=== PATIENT | male | born 1995 | race Hispanic/Latino ===

== ENCOUNTER 2017-10-11 19:16 | Emergency (ER) | payer OTHER, SELFPAY ==
[2017-10-11] MEDS ORDERED: Bacitracin Zinc 1 Packet ONE (20:29)
[2017-10-11] MEDS ORDERED: Adacel (T-DAP) 0.5 ML VIAL ONE (20:30)
== END 2017-10-11 20:39 | disposition home or self-care (01) ==
LOC: ERS 19:16
DX: S51.811A Laceration without foreign body of right forearm, initial encounter (principal); W22.8XXA Striking against or struck by other objects, initial encounter
CPT/HCPCS: 12002; 90471; 90715

== ENCOUNTER 2018-03-31 13:48 | Outpatient (CLI) | payer OTHER | END 2018-03-31 13:49 | disposition home or self-care (01) | LOC: BICRAD 13:48 | DX: S99.922A Unspecified injury of left foot, initial encounter (principal) ==